=== PATIENT | male | born 1950 | race Caucasian/White ===

== ENCOUNTER 2021-07-25 08:42 | Outpatient (CLI) | payer MEDICARE | END 2021-07-25 08:43 | disposition home or self-care (01) | LOC: CSHWCC 08:42 | PROVIDERS: ATTEND Nurse Practitioner Family | DX: E11.622 Type 2 diabetes mellitus with other skin ulcer (principal); S81.001D Unspecified open wound, right knee, subsequent encounter; S91.309D Unspecified open wound, unspecified foot, subsequent encounter; I25.10 Atherosclerotic heart disease of native coronary artery without angina pectoris; E78.2 Mixed hyperlipidemia; M1A.9XX0 Chronic gout, unspecified, without tophus (tophi); T14.8XXD Other injury of unspecified body region, subsequent encounter; V86.69XD Passenger of other special all-terrain or other off-road motor vehicle injured in nontraffic accident, subsequent encounter | CPT/HCPCS: 97139; G0463; 99212 ==